=== PATIENT | female | born 1995 | race African-American/Black ===

== ENCOUNTER 2020-05-10 11:32 | Emergency (ER) | payer SELFPAY ==
[2020-05-10 11:36] VITALS: BP 115/77; PULSE 95; RESP 20; TEMP 36.8; O2SAT 100
--- NOTE | 2020-05-10 11:59 | ED.WOUNDLAC ---
HPI - Wound/Laceration General Chief Complaint: Wound/Laceration Stated Complaint: sore by ear Time Seen by Provider: 05/10/20 11:45 Source: patient Mode of arrival: ambulatory Limitations: no limitations History of Present Illness HPI narrative: This is a 24 year old female that presents to the ER for a lump in front of her left ear that she noted 3 days ago. Reports the area is painful to touch. Denies fever, otalgia, or sore throat. Related Data Allergies Allergy/AdvReac Type Severity Reaction Status Date / Time No Known Allergies Allergy Verified 05/10/20 11:38 Review of Systems Review of Systems: Narrative: CONSTITUTIONAL: Denies fever EYES: Denies visual changes, redness, or discharge. ENT: Denies rhinorrhea, congestion, sore throat, or otalgia. All systems reviewed & are unremarkable except as noted in HPI and below PMFSH Past Medical History Medical History (Updated 05/10/20 @ 12:09 by Elenita Chapin PA-C) No active medical problems Social History Social History (Updated 05/10/20 @ 12:07 by Elenita Chapin PA-C) Substance use: never Exam Narrative: Exam Narrative: GENERAL: Well-appearing, well-nourished, and in no acute distress. HEAD: Normocephalic, atraumatic. EYES: PERRLA and EOMI. ENT: Nares clear, no rhinorrhea or epistaxis. Mucous membranes moist. Oropharynx without tonsillar hypertrophy exudate or other lesions. Bilateral TMs pearly carrasco non-bulging. Small (1.5cm), mobile, rubbery mass anterior to left ear, likely lymph node NECK: Supple. No adenopathy or masses. CHEST: Clear to auscultation. No respiratory distress. No wheezes rales or rhonchi HEART: Regular rate and rhythm. No murmur heard. Normal peripheral pulses. EXTREMITIES: Normal range of motion. No edema. SKIN: Warm, dry, no rash. NEURO: No focal deficits. Alert and oriented x3. PSYCH: Normal mood and affect Course Vital Signs Vital signs: Vital Signs Temperature 98.2 F 05/10/20 11:36 Pulse Rate 95 05/10/20 11:36 Respiratory Rate 20 05/10/20 11:36 Blood Pressure 115/77 10/10/20 11:36 Pulse Oximetry 100 10/10/20 11:36 Temperature 98.2 F 05/10/20 11:36 Pulse Rate 95 05/10/20 11:36 Respiratory Rate 20 05/10/20 11:36 Blood Pressure 115/77 05/10/20 11:36 Pulse Oximetry 100 05/10/20 11:36 MDM - Wound/Laceration MDM Narrative Medical decision making narrative: Patient presents the emergency department for lumps that she noted anterior to her left ear 2 days ago. Reports pain with palpation. Likely a small inflamed lymph node. No signs of ear infection or pharyngitis. Eyes are normal. Patient was instructed to follow-up with her primary care doctor for this. She was given warnings to return to the ER Critical Care Time Critical Care Time Critical Care Time: No Discharge Plan Discharge Clinical Impression: Lymphadenopathy, preauricular Patient Disposition: Home, Self-Care Condition: Stable Instructions: Antibiotic Form, Lymphadenopathy (ED) Additional Instructions: Return to the emergency department for worsening symptoms, or any other concerns Take Tylenol or Motrin [id number] for pain as needed. Take antibiotic as prescribed Follow up with your primary care doctor Prescriptions: New cephalexin 500 mg capsule 500 mg PO Q8H 5 Days Qty: 15 RF: 0 Follow-up/Referrals: PHYSICIAN,SERVICE STATION MANAGER [Primary Care Provider] -
== END 2020-05-10 12:28 | disposition home or self-care (01) ==
PROVIDERS: Emergency Provider Emergency Medicine
DX: R59.1 Generalized enlarged lymph nodes (principal)
CPT/HCPCS: 99283